=== PATIENT | female | born 1975 | race Two or more races ===

== ENCOUNTER → 2020-08-13 | Outpatient (CLI) | payer BC ==
--- NOTE | 2020-08-13 10:41 | KCIC ---
Bilateral digital screening mammograms: Reason for examination: Routine baseline screening. Interpretation was made with the benefit of CAD. The skin and nipples show no abnormalities. No abnormal axillary lymph nodes are seen. The breast par enchyma shows scattered fibroglandular density. (Breast density: Category B.) There is a small nodula r density present in the left breast at approximately the 3:30 B position measuring 6.5 mm in size. F urther evaluation with ultrasound is recommended. There is also a patch of nodular parenchymal asymme try at the 10:00 B of the right breast. Further evaluation with coned compression views and ultrasoun d is recommended. No abnormal calcifications are seen. Impression: Small nodular density at approximately the 3:30 B position of the left breast. Recommend further eval uation with ultrasound. Nodular parenchymal asymmetry at the 10:00 B position of the right breast. Recommend further evaluati on with coned compression views and ultrasound. BI-RADS Category 0: Incomplete. Needs additional imaging evaluation. "Our facility is accredited by the [employer]ography [employer]." This patient's information has been entered into a reminder system for the patient to be notified wit h the results of her examination and a target date for the next mammogram. Electronically signed by: Jany Gillette MD (08/13/2020 10:39 AM) [id number]
== END ==
LOC: KCIC MAMMO 09:19
PROVIDERS: ATTEND Obstetrics & Gynecology
DX: Z12.31 Encounter for screening mammogram for malignant neoplasm of breast (principal); N64.89 Other specified disorders of breast
CPT/HCPCS: 77067

== ENCOUNTER → 2020-09-05 | Outpatient (CLI) | payer BC ==
--- NOTE | 2020-09-05 17:23 | KCIC ---
Right breast diagnostic digital mammograms: Reason for examination: Parenchymal asymmetry at the 10:00 B position. Comparison is made to mammographic exam dated 08/13/2020. Coned compression views were obtained in CC and oblique projections. Nodular parenchymal density persists laterally at approximately the 10:00 position. Ultrasound to fol low. IMPRESSION: Continued presence of some nodular asymmetry at the 10:00 B position. Ultrasound to follow. BI-RADS Category 0: Incomplete. Needs additional imaging evaluation. Bilateral breast ultrasound: Bilateral breast ultrasound including the axillary regions of both breasts was performed. In the right breast at the 10:00 position 5 cm from the nipple, there is a hypoechoic nodule with irr egular lobulated margins measuring 5.5 x 4.3 mm in greatest dimensions. This shows some adjacent vasc ular flow. Small malignancy cannot be excluded and further evaluation with ultrasound-guided biopsy i s recommended. No abnormal appearing lymph nodes are seen in the right axilla. In the left breast at the 3:00 position 6 cm from the nipple, there is a hypoechoic nodule with irreg ular margination measuring 6.4 x 3.7 mm in greatest dimension. Further evaluation with ultrasound-sury ded biopsy is recommended. No abnormal appearing lymph nodes are seen in the left axilla. IMPRESSION: 5.5 mm lobulated irregular nodule at the 10:00 position 5 cm from the nipple of the right breast. Ult rasound-guided biopsy is recommended. 6.4 mm irregularly marginated nodule at the 3:00 position 6 cm from the nipple of the left breast. Ul trasound-guided biopsy is recommended. BI-RADS Category 4: Suspicious. These findings were discussed with the patient and the patient's physician will be notified about the se findings when the office reopens tomorrow. "Our facility is accredited by the [employer] Mammography [employer]." This patient's information has been entered into a reminder system for the patient to be notified wit h the results of her examination and a target date for the next mammogram. Electronically signed by: Jany Gillette MD (09/05/2020 5:21 PM) [email or web address]
== END ==
LOC: KCIC MAMMO 13:05
PROVIDERS: ATTEND Obstetrics & Gynecology
DX: N63.11 Unspecified lump in the right breast, upper outer quadrant (principal)
CPT/HCPCS: 76641; 77065